=== PATIENT | female | born 1940 | race Caucasian/White ===

== ENCOUNTER 2017-02-25 06:34 | Day surgery (SDC) | payer MEDICARE, BC ==
[2017-02-25] MEDS ORDERED: Midazolam 1 MG/ML 2 ML SDV ONE (06:52)
[2017-02-25] MEDS ORDERED: fentaNYL 100 MCG/2 ML SDV ONE (06:52)
[2017-02-25] MEDS ORDERED: Propofol 200 MG/20 ML SDV ONE (06:52)
[2017-02-25] MEDS ORDERED: Sodium Chloride 0.9% 1,000 ML IV SCH (07:30)
[2017-02-25 10:16] VITALS: BP 156/79
--- NOTE | 2017-02-26 11:36 | OR ---
DATE OF PROCEDURE: 02/25/2017 PROCEDURE: Colonoscopy. FINDINGS: 1. Very mild inflammation of the rectum (biopsied using cold biopsy forceps). 2. No other abnormalities. No diverticulosis. No masses. No bleeding. PREOPERATIVE DIAGNOSIS: Rectal pain. POSTOPERATIVE DIAGNOSIS: Rectal pain. RISKS: Risks, benefits, alternatives, and limitations including, but not limited to, infection, bleeding, and perforation were explained to the patient and then wished to proceed. DESCRIPTION OF PROCEDURE: The patient was placed in the left lateral decubitus position. Digital rectal exam was performed without abnormality. The scope was introduced and advanced atraumatically to the ileocecal valve. The scope was brought back to the ascending, transverse, descending colon and retroflexed. No evidence of old or new blood. No diverticulosis. Very mild inflammation in the rectum, which was biopsied using cold biopsy forceps. No other abnormalities noted. The patient tolerated the procedure well. Petros García MD /[id number]
== END 2017-02-25 10:05 | disposition home or self-care (01) ==
LOC: JP.SDS 06:34
PROVIDERS: ATTEND Surgery
PROC: 0DBP8ZX Excision of Rectum, Via Natural or Artificial Opening Endoscopic, Diagnostic (ICD-10-PCS; principal; 2017-02-25)
DX: K62.89 Other specified diseases of anus and rectum (principal)
CPT/HCPCS: 45380; 88305; J2250; J2704; J3010; J7040

== ENCOUNTER 2017-07-15 09:31 | Emergency (ER) | payer MEDICARE, BC ==
--- NOTE | 2017-07-15 10:35 | EDM.PDOC ---
ED HPI GENERAL MEDICAL PROBLEM - General Chief Complaint: Cardiovascular Problem Stated Complaint: HEART PALPITATIONS Time Seen by Provider: 07/15/17 10:32 Source of Information: Reports: Patient History Limitations: Reports: No Limitations - History of Present Illness INITIAL COMMENTS - FREE TEXT/NARRATIVE: pt arrived with a history of palpitations. Thi lasted for bout 45 minutes. She did not have pain in her chest. She has not been ill with the flu. Onset: Other ( This has been going on for about 3 weeks on and off. ) Duration: Day(s): Location: Reports: Chest Quality: Reports: Other (pt did not have chest pain) Associated Symptoms: Reports: No Other Symptoms - Related Data Allergies Allergy/AdvReac Type Severity Reaction Status Date / Time atorvastatin [From Lipitor] Allergy Joint Pain Verified 02/25/17 07:02 cortisone Allergy Rash Verified 02/25/17 07:02 ezetimibe [From Zetia] Allergy Other Verified 02/25/17 07:02 Mvwmpmr-Msj-Ciw Reductase Allergy Joint Pain Verified 02/25/17 07:02 Inhibitor Sulfa (Sulfonamide Allergy Rash Verified 02/25/17 07:02 Antibiotics) Home Meds: Home Meds Aspirin [Halfprin] 81 mg PO DAILY 02/24/17 [History] Calcium Carbonate 600 mg PO BIDMEALS 02/24/17 [History] Fenofibrate Nanocrystallized [Triglide] 160 mg PO DAILY 02/24/17 [History] Levothyroxine [Sythroid] 100 mcg PO DAILY 02/24/17 [History] Metoprolol Succinate [Toprol Xl] 50 mg PO DAILY 02/24/17 [History] Nitroglycerin [Nitrostat] 0.4 mg SL ASDIRECTED 02/24/17 [History] [place]-3/DHA/Epa/Fish Oil [[place]-3 Fish Oil 1,000 MG Sfgl] 1,000 mg PO BID [History] PARoxetine [Paxil] 5 mg PO DAILY 02/24/17 [History] Ubidecarenone [Coenzyme Q10] 100 mg PO DAILY 02/24/17 [History] Omeprazole 20 mg PO DAILY 07/15/17 [History] Past Medical History Cardiovascular History: Reports: Angina, Arrhythmia, CAD, High Cholesterol, Hypertension Gastrointestinal History: Reports: GERD, Hemorrhoids Genitourinary History: Reports: Urinary Incontinence, UTI, Recurrent 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: Polycystic Ovaries, Musculoskeletal History: Reports: Arthritis Neurological History: Reports: Migraines Psychiatric History: Reports: Anxiety Endocrine/Metabolic History: Reports: Hypothyroidism - Past Surgical History HEENT Surgical History: Reports: Oral Surgery Cardiovascular Surgical History: Reports: Coronary Artery Bypass, Varicose, Other (See Below) Other Cardiovascular Surgeries/Procedures: vein stripping Respiratory Surgical History: Reports: Other (See Below) Other Respiratory Surgeries/Procedures: collapsed lung with chest tube placed GI Surgical History: Reports: Appendectomy, Cholecystectomy, Colonoscopy Female Surgical History: Reports: Breast Biopsy, Hysterectomy, Salpingo- Oophorectomy Musculoskeletal Surgical History: Reports: Other (See Below) Other Musculoskeletal Surgeries/Procedures:: right hand surgery Social & Family History - Tobacco Use Smoking Status *Q: Never Smoker Years of Tobacco use: 1 Used Tobacco, but Quit: Yes Month Tobacco Last Used: 0 - Caffeine Use Caffeine Use: Reports: Coffee - Recreational Drug Use Recreational Drug Use: No ED ROS GENERAL - Review of Systems Review Of Systems: See Below Constitutional: Reports: No Symptoms HEENT: Reports: No Symptoms Respiratory: Reports: Shortness of Breath Cardiovascular: Reports: Palpitations Endocrine: Reports: No Symptoms GI/Abdominal: Reports: No Symptoms : Reports: No Symptoms Musculoskeletal: Reports: No Symptoms Skin: Reports: No Symptoms Neurological: Reports: No Symptoms ED EXAM, GENERAL - Physical Exam Exam: See Below Free Text/Narrative:: pt arrived with a history of 3 weeks of palpitations This am she had 45 minutes where her heart was racing and she was having palpitations. Exam Limited By: No Limitations General Appearance: Alert, Anxious Ears: Normal TMs Nose: Normal Inspection Throat/Mouth: Normal Inspection Head: Atraumatic Neck: Normal Inspection Respiratory/Chest: No Respiratory Distress Cardiovascular: Regular Rate, Rhythm, Other (pt has not had any irregularities) GI/Abdominal: Soft, Non-Tender Rectal (Female) Exam: Normal Exam Back Exam: Normal Inspection Extremities: Normal Inspection Neurological: Alert, Oriented, Normal Cognition Psychiatric: Normal Affect Course - Vital Signs Last Recorded V/S: Last Vital Signs Temp 35.3 C 07/15/17 09:52 Pulse 57 L 07/15/17 11:42 Resp 13 07/15/17 11:42 BP 134/75 07/15/17 11:42 Pulse Ox 96 07/15/17 11:42 - Orders/Labs/Meds Orders: Active Orders 24 hr Category Date Time Status EKG Documentation Completion [RC] ASDIRECTED Care 07/15/17 10:32 Active EKG 12 Lead [EK] Routine Ther 07/15/17 10:32 Ordered Labs: Laboratory Tests 07/15/17 07/15/17 Range/Units 10:41 10:41 WBC 3.1 L (4.5-11.0) K/uL RBC 4.17 (3.30-5.50) M/uL Hgb 12.3 (12.0-15.0) g/dL Hct 37.6 (36.0-48.0) % MCV 90 (80-98) fL MCH 30 (27-31) pg MCHC 33 (32-36) % Plt Count 415 H (150-400) K/uL Neut % (Auto) 39 (36-66) % Lymph % (Auto) 44 (24-44) % [place] % (Auto) 16 H (2-6) % Eos % (Auto) 1 L (2-4) % Baso % (Auto) 0 (0-1) % Magnesium 1.5 L (1.8-2.4) mg/dL Troponin I < 0.017 (0.000-0.056) ng/mL - Re-Assessments/Exams Free Text/Narrative Re-Assessment/Exam: 07/15/17 12:00 pt had nornal chemitries at the clinic yesterday. Her ekg was normal. Her Tsh at the clinic was normal. her chest xray looked good. Her trop was normal. 07/15/17 12:01 A magnesium level was obtained which was 1.5. Departure - Departure Time of Disposition: 12:02 Disposition: Home, Self-Care 01 Condition: Fair Clinical Impression: Irregular heart beat, Hypomagnesemia Referrals: Luther Jack MD [Primary Care Provider] - Forms: ED Department Discharge Care Plan Goals: event recorder, magnesium oxide 400mg daily, keep upcoming appt with Dr Jack for her physical exam. - My Orders Last 24 Hours: My Active Orders 07/15/17 10:32 EKG Documentation Completion [RC] ASDIRECTED EKG 12 Lead [EK] Routine - Assessment/Plan Last 24 Hours: My Active Orders 07/15/17 10:32 EKG Documentation Completion [RC] ASDIRECTED EKG 12 Lead [EK] Routine
--- NOTE | 2017-07-15 11:45 | CR ---
Chest 2V HISTORY: Palpitations. COMPARISON: CT scan of the chest 10/17/2011. FINDINGS: Prior median sternotomy. The cardiac size is normal no acute infiltrates. No acute congesti ve change. Impression: 1. No acute pulmonary disease.
[2017-07-15 11:48] VITALS: BP 134/75
[2017-07-15] MEDS ORDERED: Magnesium Oxide 400 MG Tab PO ONE (11:55)
== END 2017-07-15 12:21 | disposition home or self-care (01) ==
LOC: JP.ED 09:31
DX: I49.9 Cardiac arrhythmia, unspecified (principal); E83.42 Hypomagnesemia; K21.9 Gastro-esophageal reflux disease without esophagitis; E78.00 Pure hypercholesterolemia, unspecified; E03.9 Hypothyroidism, unspecified; I10 Essential (primary) hypertension; Z87.440 Personal history of urinary (tract) infections; Z88.5 Allergy status to narcotic agent; Z88.2 Allergy status to sulfonamides; Z88.8 Allergy status to other drugs, medicaments and biological substances; Z79.82 Long term (current) use of aspirin
CPT/HCPCS: 36415; 71046; 83735; 84484; 85025; 93005; 99285; A9270; 93010; 99284

== ENCOUNTER 2018-07-26 11:47 | Emergency (ER) | payer MEDICARE ==
[2018-07-26 12:24] VITALS: BP 168/91
--- NOTE | 2018-07-26 12:48 | EDM.PDOC ---
ED HPI GENERAL MEDICAL PROBLEM - General Chief Complaint: Gastrointestinal Problem Stated Complaint: STINGING/BURNING IN CHEST Time Seen by Provider: 07/26/18 12:40 Source of Information: Reports: Patient, Old Records, RN History Limitations: Reports: No Limitations - History of Present Illness INITIAL COMMENTS - FREE TEXT/NARRATIVE: 78 yo female here with chest burning that began on Friday rather abruptly radiating to both shoulders. Described it as a burning. No associated sx's. Sx' s have persisted although less severe since then. She is on famotidine and omeprazole currently. Has a hx of 2 stents in her coronaries. Sx's not like anything she has experienced before. Has also had loose stools x 2 days, no associated blood in stool. No fever. Onset: Sudden Onset Date: 07/24/18 Duration: Day(s): (2), Constant, Improving Location: Reports: Chest, Abdomen (upper abdomen) Quality: Reports: Burning Severity: Moderate Improves with: Reports: Other (slightly better since Friday, not sure what made it less. ) Worsens with: Reports: None Context: Reports: Other (see HPI) Associated Symptoms: Reports: Chest Pain (burning). 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) (usual meds.) - Related Data Allergies Allergy/AdvReac Type Severity Reaction Status Date / Time atorvastatin [From Lipitor] Allergy Joint Pain Verified 07/26/18 12:15 cortisone Allergy Rash Verified 07/26/18 12:15 ezetimibe [From Zetia] Allergy Other Verified 07/26/18 12:15 Pcegxtk-Kmx-Xbl Reductase Allergy Joint Pain Verified 07/26/18 12:15 Inhibitor Sulfa (Sulfonamide Allergy Rash Verified 07/26/18 12:15 Antibiotics) Home Meds: Home Meds Aspirin [Halfprin] 81 mg PO DAILY 02/24/17 [History] Calcium Carbonate 600 mg PO BIDMEALS 02/24/17 [History] Fenofibrate Nanocrystallized [Triglide] 160 mg PO DAILY 02/24/17 [History] Levothyroxine [Sythroid] 100 mcg PO DAILY 02/24/17 [History] Metoprolol Succinate [Toprol Xl] 50 mg PO DAILY 02/24/17 [History] Nitroglycerin [Nitrostat] 0.4 mg SL ASDIRECTED 02/24/17 [History] [place]-3/DHA/Epa/Fish Oil [[place]-3 Fish Oil 1,000 MG Sfgl] 1,000 mg PO BID [History] PARoxetine [Paxil] 10 mg PO DAILY 02/24/17 [History] Ubidecarenone [Co Q-10] 100 mg PO DAILY 08/05/17 [History] hydroCHLOROthiazide [Hydrochlorothiazide] 25 mg PO DAILY 08/05/17 [History] Past Medical History Cardiovascular History: Reports: Angina, Arrhythmia, CAD, High Cholesterol, Hypertension Gastrointestinal History: Reports: GERD, Hemorrhoids Genitourinary History: Reports: Urinary Incontinence, UTI, Recurrent 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: Polycystic Ovaries, Musculoskeletal History: Reports: Arthritis Neurological History: Reports: Migraines Psychiatric History: Reports: Anxiety Endocrine/Metabolic History: Reports: Hypothyroidism - Past Surgical History HEENT Surgical History: Reports: Oral Surgery Cardiovascular Surgical History: Reports: Coronary Artery Bypass, Varicose, Other (See Below) Other Cardiovascular Surgeries/Procedures: vein stripping Respiratory Surgical History: Reports: Other (See Below) Other Respiratory Surgeries/Procedures: collapsed lung with chest tube placed GI Surgical History: Reports: Appendectomy, Cholecystectomy, Colonoscopy Female Surgical History: Reports: Breast Biopsy, Hysterectomy, Salpingo- Oophorectomy Musculoskeletal Surgical History: Reports: Other (See Below) Other Musculoskeletal Surgeries/Procedures:: right hand surgery Social & Family History - Tobacco Use Smoking Status *Q: Never Smoker Second Hand Smoke Exposure: No - Caffeine Use Caffeine Use: Reports: Coffee Other Caffeine Use: when feels good drinks 4 cpd - Recreational Drug Use Recreational Drug Use: No ED ROS GENERAL - Review of Systems Review Of Systems: See Below Constitutional: Denies: Fever, Diaphoresis HEENT: Reports: No Symptoms Respiratory: Reports: No Symptoms Cardiovascular: Reports: Chest Pain (burning). Denies: Dyspnea on Exertion, Palpitations, Syncope Endocrine: Reports: No Symptoms GI/Abdominal: Reports: Abdominal Pain (upper abdomen), Diarrhea, Decreased Appetite. Denies: Anorexia, Black Stool, Bloody Stool, Constipation, Distension , Hematemesis, Hematochezia, Melena, Nausea, Vomiting : Reports: No Symptoms Musculoskeletal: Reports: No Symptoms Skin: Reports: No Symptoms Neurological: Reports: No Symptoms Psychiatric: Reports: No Symptoms ED EXAM, GI/ABD - Physical Exam Exam: See Below Exam Limited By: No Limitations General Appearance: Alert, WD/WN, No Apparent Distress Eyes: Bilateral: Normal Appearance Ears: Normal External Exam, Normal Canal, Hearing Grossly Normal Nose: Normal Inspection, No Blood Throat/Mouth: Normal Inspection, Normal Lips, Normal Oropharynx, Normal Voice, No Airway Compromise Head: Atraumatic, Normocephalic Neck: Normal Inspection, Supple, Non-Tender Respiratory/Chest: No Respiratory Distress, Lungs Clear, Normal Breath Sounds, No Accessory Muscle Use Cardiovascular: Regular Rate, Rhythm, No Edema GI/Abdominal Exam: Normal Bowel Sounds, Soft, No Distention, Tender (epigastrium ). No: Non-Tender Back Exam: Normal Inspection. No: CVA Tenderness (R), CVA Tenderness (L) Extremities: Normal Inspection, Normal Range of Motion, Non-Tender, No Pedal Edema Neurological: Alert, Oriented, CN II-XII Intact, Normal Cognition, No Motor/ Sensory Deficits Psychiatric: Normal Affect, Normal Mood Skin Exam: Warm, Dry, Intact, Normal Color, No Rash Lymphatic: No Adenopathy EKG INTERPRETATION EKG Date: 07/26/18 Time: 12:15 Rhythm: NSR Rate (Beats/Min): 70 [place]: Normal P-Wave: Present QRS: Normal ST-T: Normal QT: Normal Comparison: No Change Course - Vital Signs Text/Narrative:: Good relief with GI cocktail Last Recorded V/S: Last Vital Signs Temp 35.9 C 07/26/18 12:22 Pulse 86 07/26/18 12:22 Resp 12 07/26/18 12:22 BP 168/91 H 07/26/18 12:22 Pulse Ox 96 07/26/18 12:22 - Orders/Labs/Meds Orders: Active Orders 24 hr Category Date Time Status Cardiac Monitoring [RC] .As Directed Care 07/26/18 11:49 Active EKG Documentation Completion [RC] ASDIRECTED Care 07/26/18 11:49 Active EKG 12 Lead [EK] Routine Ther 07/26/18 11:48 Ordered Labs: Laboratory Tests 07/26/18 07/26/18 Range/Units 12:54 13:06 WBC 4.8 (4.5-11.0) K/uL RBC 4.43 (3.30-5.50) M/uL Hgb 13.2 (12.0-15.0) g/dL Hct 39.3 (36.0-48.0) % MCV 89 (80-98) fL MCH 30 (27-31) pg MCHC 34 (32-36) % Plt Count 454 H (150-400) K/uL Sodium 129 L (140-148) mmol/L Potassium 3.4 L (3.6-5.2) mmol/L Chloride 93 L (100-108) mmol/L Carbon Dioxide 28 (21-32) mmol/L Anion Gap 11.4 (5.0-14.0) mmol/L BUN 12 (7-18) mg/dL Creatinine 0.8 (0.6-1.0) mg/dL Est Cr Clr Drug Dosing 58.18 mL/min Estimated GFR (MDRD) > 60 (>60) Glucose 104 (74-106) mg/dL Calcium 10.0 (8.5-10.1) mg/dL Troponin I < 0.017 (0.000-0.056) ng/mL Meds: Medications Discontinued Medications Generic Name Dose Route Start Last Admin Trade Name Freq PRN Reason Stop Dose Admin Al Hydroxide/Mg Hydroxide 15 0 ml 07/26/18 12:54 07/26/18 13:09 ml/ Lidocaine HCl 15 ml PO 07/26/18 12:55 15 ml ONETIME ONE Administration Diphenoxylate HCl/Atropine 1 tab 07/26/18 12:54 07/26/18 13:08 Lomotil 0.025-2.5 Mg PO 07/26/18 12:55 1 tab ONETIME ONE Administration Departure - Departure Time of Disposition: 13:40 Disposition: Home, Self-Care 01 Condition: Good Clinical Impression: Gastritis Qualifiers: Gastritis type: unspecified gastritis Chronicity: acute Gastritis bleeding: without bleeding Qualified Code(s): K29.00 - Acute gastritis without bleeding - Discharge Information *PRESCRIPTION DRUG MONITORING PROGRAM REVIEWED*: No *COPY OF PRESCRIPTION DRUG MONITORING REPORT IN PATIENT AGUSTIN: No Instructions: Gastritis, Adult, [id number] Referrals: Luther Jack MD [Primary Care Provider] - Forms: ED Department Discharge Additional Instructions: Continue current medications. Avoid: ibuprofen, aspirin, Aleve, carbonated beverages. Limit your caffeine. Bring stool that you have collected to your doctor for H. pylori testing. Take Gaviscon 30 ml after meals and at bedtime for heartburn. Take loperamide per package instructions for diarrhea control. Eat bananas as they are good for diarrhea and also to help raise your potassium level that is a little low. - My Orders Last 24 Hours: My Active Orders 07/26/18 11:48 EKG 12 Lead [EK] Routine 07/26/18 11:49 Cardiac Monitoring [RC] .As Directed EKG Documentation Completion [RC] ASDIRECTED - Assessment/Plan Last 24 Hours: My Active Orders 07/26/18 11:48 EKG 12 Lead [EK] Routine 07/26/18 11:49 Cardiac Monitoring [RC] .As Directed EKG Documentation Completion [RC] ASDIRECTED
[2018-07-26] MEDS ORDERED: Atropine/Diphenoxylate 0.025-2.5 MG Tab PO ONE (12:54)
[2018-07-26] MEDS ORDERED: Alum Hydrox/Mag Hydrox/Simeth 15 ML, Lidocaine 2% 15 ML PO ONE ×2 (12:54)
== END 2018-07-26 14:37 | disposition home or self-care (01) ==
LOC: JP.ED 11:47
DX: K29.00 Acute gastritis without bleeding (principal); I25.10 Atherosclerotic heart disease of native coronary artery without angina pectoris; E78.00 Pure hypercholesterolemia, unspecified; I10 Essential (primary) hypertension; K21.9 Gastro-esophageal reflux disease without esophagitis; E03.9 Hypothyroidism, unspecified; Z88.8 Allergy status to other drugs, medicaments and biological substances; Z79.82 Long term (current) use of aspirin; Z79.899 Other long term (current) drug therapy
CPT/HCPCS: 36415; 80048; 84484; 85027; 93005; 99285; A9270; 99283

== ENCOUNTER 2021-01-25 08:12 | Day surgery (SDC) | payer MEDICARE ==
[2021-01-25] MEDS ORDERED: Sodium Chloride 0.9% 10 ML Syringe FLUSH PRN (08:30)
[2021-01-25 09:28] VITALS: BP 153/78; PULSE 84
--- NOTE | 2021-01-25 14:01 | OR ---
DATE OF PROCEDURE: 01/25/2021 SURGEON: Karis Miller MD POSTOPERATIVE CARE: Postoperative care will be provided mainly at the [address] [place] [address] [facility] in conjunction with [facility]. PREOPERATIVE DIAGNOSIS: Cataract, right eye. POSTOPERATIVE DIAGNOSIS: Cataract, right eye. PROCEDURE: Phacoemulsification with intraocular lens placement, right eye. ANESTHESIA: Topical and intracameral. ESTIMATED BLOOD LOSS: Minimal. COMPLICATIONS: None. PATHOLOGY SPECIMENS: None. SURGICAL FINDINGS: None. INDICATION FOR PROCEDURE: The patient is a 80-year-old female with history of a visually significant cataract in the right eye, which interfered with activities of daily living. This consisted of a nuclear sclerosis cataract. Following careful discussion of the risks, benefits and alternatives to cataract extraction with intraocular lens placement including blindness and , the patient elected to proceed, and informed, written consent was obtained prior to the procedure. DESCRIPTION OF THE PROCEDURE: The patient was previously identified, and a eladio placed above the right eye. All sources, including the patient, indicated that the right eye was the correct eye. The patient was subsequently taken to the operating room where standard monitors were applied. The patient was then prepped and draped in the usual sterile fashion for ophthalmic surgery. Attention was first directed at the 12 o'clock position where a paracentesis port was fashioned. Shugar solution followed by Viscoat was instilled into the eye. Attention was then directed to the 8:30 position where a triplanar incision was made in a near-clear manner using a keratome. A continuous capsulorrhexis was then made using a combination of the cystotome and Utrata forceps. Hydrodissection was achieved using a balanced salt solution, and the lens rotated nicely. Phacoemulsification was then done using a modified [id number]-[id number] technique without complication. Phaco time was 5.91 CDE. The remaining cortex was removed using the irrigation/aspiration handpiece. Provisc was then instilled into the eye. A Technis lens, model DCB00, at 19.0 diopters was then placed in the capsular bag using an [place] injector. The remaining viscoelastic was removed using the irrigation/aspiration forceps. All wounds were then checked and found to be watertight. The lid speculum and drapes were removed. Maxitrol ointment was placed in the patient's right eye, and the eye was shielded. The patient tolerated the procedure well. The patient was instructed to follow up tomorrow. All needle and sponge counts were correct at the end of the procedure. Karis Miller MD /[id number]
== END 2021-01-25 09:25 | disposition home or self-care (01) ==
LOC: JP.SDS 08:12
PROVIDERS: ATTEND Ophthalmology
DX: H25.11 Age-related nuclear cataract, right eye (principal); I10 Essential (primary) hypertension; E78.5 Hyperlipidemia, unspecified; Z86.69 Personal history of other diseases of the nervous system and sense organs

== ENCOUNTER 2021-02-20 06:48 | Emergency (ER) | payer MEDICARE ==
[2021-02-20] MEDS ORDERED: Nitroglycerin 0.4 MG Tab.SL SL PRN (07:06)
[2021-02-20] MEDS ORDERED: Aspirin 81 MG Tab.Chew PO ONE (07:06)
[2021-02-20] MEDS ORDERED: Morphine 4 MG/ML Syringe IVPUSH PRN (07:06)
--- NOTE | 2021-02-20 07:09 | EDM.PDOC ---
ED HPI GENERAL MEDICAL PROBLEM - General Chief Complaint: Chest Pain Stated Complaint: SOB Time Seen by Provider: 02/20/21 06:56 Source of Information: Reports: Patient, Family, RN Notes Reviewed History Limitations: Reports: No Limitations - History of Present Illness INITIAL COMMENTS - FREE TEXT/NARRATIVE: 80-year-old female presents emergency department day complaint of chest pressure, she states is been ongoing for the last 5 days it does come and go she describes kind of classic anginal type symptoms with exertion she gets some chest pressure she stops rests it goes away. She is never taken any nitro for this pain. Her biggest complaint is shortness of breath with the chest pressure no nausea no diaphoresis. History of a CABG stress test 2018 unremarkable Chest Pain Score (Numeric/FACES): 1 - Related Data Allergies Allergy/AdvReac Type Severity Reaction Status Date / Time cortisone Allergy Rash Verified 02/20/21 06:57 ezetimibe [From Zetia] Allergy Other Verified 02/20/21 06:57 Sulfa (Sulfonamide Allergy Rash Verified 02/20/21 06:57 Antibiotics) amoxicillin [From Augmentin] AdvReac Diarrhea Verified 02/20/21 06:57 atorvastatin [From Lipitor] AdvReac Joint Pain Verified 02/20/21 06:57 clavulanic acid AdvReac Diarrhea Verified 02/20/21 06:57 [From Augmentin] [id number] Reductase AdvReac Joint Pain Verified 02/20/21 06:57 Inhibitor Home Meds: Home Meds Aspirin [Halfprin] 81 mg PO DAILY 02/24/17 [History] Calcium Carbonate 600 mg PO BIDMEALS 02/24/17 [History] Fenofibrate Nanocrystallized [Triglide] 160 mg PO DAILY 02/24/17 [History] Levothyroxine [Sythroid] 100 mcg PO DAILY 02/24/17 [History] Metoprolol Succinate [Toprol Xl] 50 mg PO DAILY 02/24/17 [History] Nitroglycerin [Nitrostat] 0.4 mg SL ASDIRECTED 02/24/17 [History] [place]-3/DHA/Epa/Fish Oil [[place]-3 Fish Oil 1,000 MG Sfgl] 1,000 mg PO BID 02/24/17 [History] PARoxetine [Paxil] 10 mg PO DAILY 02/24/17 [History] Ubidecarenone [Co Q-10] 100 mg PO DAILY 08/05/17 [History] Furosemide [Lasix] 20 mg PO DAILY 01/08/21 [History] Omeprazole Magnesium [Prilosec Otc] 40 mg PO DAILY 01/08/21 [History] amLODIPine [Norvasc] 2.5 mg PO DAILY 01/08/21 [History] fluorouraciL [Efudex 5% Cream] 1 applic TOP DAILY 01/08/21 [History] Magnesium Amino Acid Chelate [Magnesium] 125 mg PO DAILY 01/22/21 [History] Past Medical History HEENT History: Reports: Cataract, Impaired Vision, Sinusitis Cardiovascular History: Reports: Angina, Arrhythmia, CAD, High Cholesterol, Hypertension Gastrointestinal History: Reports: Cholelithiasis, GERD, Hemorrhoids Genitourinary History: Reports: Urinary Incontinence, UTI, Recurrent [employer] History: Reports: Polycystic Ovaries, Musculoskeletal History: Reports: Arthritis Neurological History: Reports: Migraines Psychiatric History: Reports: Anxiety Endocrine/Metabolic History: Reports: Hypothyroidism Oncologic (Cancer) History: Reports: Other (See Below) Other Oncologic History: skin - Infectious Disease History Infectious Disease History: Reports: Chicken Pox, Measles - Past Surgical History HEENT Surgical History: Reports: Oral Surgery Cardiovascular Surgical History: Reports: Coronary Artery Bypass, Varicose, Other (See Below) Other Cardiovascular Surgeries/Procedures: vein stripping Respiratory Surgical History: Reports: Other (See Below) Other Respiratory Surgeries/Procedures: collapsed lung with chest tube placed GI Surgical History: Reports: Appendectomy, Cholecystectomy, Colonoscopy Female Surgical History: Reports: Breast Biopsy, Hysterectomy, Salpingo-Oophorectomy Endocrine Surgical History: Reports: None Musculoskeletal Surgical History: Reports: Other (See Below) Other Musculoskeletal Surgeries/Procedures:: right hand surgery Oncologic Surgical History: Reports: Other (See Below) Other Oncologic Surgeries/Procedures: skin bx Social & Family History - Tobacco Use Tobacco Use Status *Q: Never Tobacco User Second Hand Smoke Exposure: No - Caffeine Use Caffeine Use: Reports: Coffee Other Caffeine Use: when feels good drinks 4 cpd - Recreational Drug Use Recreational Drug Use: No ED ROS GENERAL - Review of Systems Review Of Systems: See Below Constitutional: Reports: No Symptoms HEENT: Reports: No Symptoms Respiratory: Reports: Shortness of Breath Cardiovascular: Reports: Chest Pain, Dyspnea on Exertion GI/Abdominal: Reports: No Symptoms ED EXAM, GENERAL - Physical Exam Exam: See Below Exam Limited By: No Limitations General Appearance: Alert, WD/WN, No Apparent Distress Respiratory/Chest: No Respiratory Distress, Lungs Clear, Normal Breath Sounds, No Accessory Muscle Use, Chest Non-Tender Cardiovascular: Regular Rate, Rhythm, No Murmur GI/Abdominal: Soft, Non-Tender #1 Interpretation EKG Date: 02/20/21 Time: 07:09 Rhythm: NSR [place]: Normal P-Wave: Present QRS: Normal ST-T: Normal QT: Normal Comparison: NA - No Prior EKG Course - Vital Signs Last Recorded V/S: Last Vital Signs Temp 97.4 F 02/20/21 07:06 Pulse 68 02/20/21 07:06 Resp 13 02/20/21 07:42 BP 150/86 H 02/20/21 07:42 Pulse Ox 93 L 02/20/21 07:42 - Orders/Labs/Meds Orders: Active Orders 24 hr Category Date Time Status Cardiac Monitoring [RC] .As Directed Care 02/20/21 07:06 Active Chest 1V Frontal [CR] Stat Exams 02/20/21 07:07 Taken Morphine Med 02/20/21 07:06 Active 4 mg IVPUSH Q10M PRN Nitroglycerin [Nitrostat] Med 02/20/21 07:06 Active 0.4 mg SL Q5M PRN EKG 12 Lead [EK] Stat Ther 02/20/21 07:07 Ordered Medication Orders Morphine Sulfate (Morphine 4 Mg/Ml Syringe) 4 mg IVPUSH Q10M PRN PRN Reason: Chest Pain Stop: 02/21/21 07:06 Nitroglycerin (Nitroglycerin 0.4 Mg Tab.Sl) 0.4 mg SL Q5M PRN PRN Reason: Chest Pain Stop: 02/21/21 07:06 Last Admin: 02/20/21 07:18 Dose: 0.4 mg Documented by: [facility] Labs: Laboratory Tests 02/20/21 02/20/21 Range/Units 07:15 07:15 WBC 4.1 L (4.5-11.0) K/uL RBC 4.49 (3.30-5.50) M/uL Hgb 13.9 (12.0-15.0) g/dL Hct 40.1 (36.0-48.0) % MCV 89 (80-98) fL MCH 31 (27-31) pg MCHC 35 (32-36) % Plt Count 376 (150-400) K/uL Neut % (Auto) 34.6 L (36-66) % Lymph % (Auto) 47.7 H (24-44) % [place] % (Auto) 16.5 H (2-6) % Eos % (Auto) 0.7 L (2-4) % Baso % (Auto) 0.5 (0-1) % Sodium 136 L (140-148) mmol/L Potassium 3.8 (3.6-5.2) mmol/L Chloride 99 L (100-108) mmol/L Carbon Dioxide 26 (21-32) mmol/L Anion Gap 14.8 H (5.0-14.0) mmol/L BUN 17 (7-18) mg/dL Creatinine 0.8 (0.6-1.0) mg/dL Est Cr Clr Drug Dosing 56.36 mL/min Estimated GFR (MDRD) > 60 (>60) Glucose 92 (74-106) mg/dL Calcium 9.6 (8.5-10.1) mg/dL Total Bilirubin 0.4 (0.2-1.0) mg/dL AST 29 (15-37) U/L ALT 30 (12-78) U/L Alkaline Phosphatase 57 (46-116) U/L Troponin I < 0.017 (0.000-0.056) ng/mL Total Protein 6.8 (6.4-8.2) g/dL Albumin 3.6 (3.4-5.0) g/dL Globulin 3.2 (2.3-3.5) g/dL Albumin/Globulin Ratio 1.1 L (1.2-2.2) Meds: Medications Generic Name Dose Route Start Last Admin Trade Name Freq PRN Reason Stop Dose Admin Morphine Sulfate 4 mg 02/20/21 07:06 Morphine 4 Mg/Ml Syringe IVPUSH 02/21/21 07:06 Q10M PRN Chest Pain Nitroglycerin 0.4 mg 02/20/21 07:06 02/20/21 07:18 Nitroglycerin 0.4 Mg Tab.Sl SL 02/21/21 07:06 0.4 mg Q5M PRN Administration Chest Pain Discontinued Medications Generic Name Dose Route Start Last Admin Trade Name Freq PRN Reason Stop Dose Admin Aspirin 324 mg 02/20/21 07:06 02/20/21 07:18 Aspirin 81 Mg Tab.Chew PO 02/20/21 07:07 324 mg ONETIME ONE Administration Departure - Departure Time of Disposition: 08:43 Disposition: Home, Self-Care 01 Condition: Fair Clinical Impression: ACS (acute coronary syndrome) Instructions: Acute Coronary Syndrome Referrals: PCP,None [Primary Care Provider] - Forms: ED Department Discharge Additional Instructions: Use your nitro if needed with chest pain, try and limit your exertion that causes chest pain, please report for your stress test on Dr. Ramos will contact you with the results. Sepsis Event Note (ED) - Focused Exam Vital Signs: Vital Signs Temp Pulse Resp BP BP Pulse Ox 02/20/21 07:42 13 150/86 H 93 L 02/20/21 07:27 19 137/91 H 96 02/20/21 07:18 153/85 H 02/20/21 07:16 17 153/85 H 97 02/20/21 07:06 97.4 F 68 16 165/86 H 99 - My Orders Last 24 Hours: My Active Orders 02/20/21 07:06 Cardiac Monitoring [RC] .As Directed Morphine 4 mg IVPUSH Q10M PRN Nitroglycerin [Nitrostat] 0.4 mg SL Q5M PRN 02/20/21 07:07 Chest 1V Frontal [CR] Stat EKG 12 Lead [EK] Stat - Assessment/Plan Last 24 Hours: My Active Orders 02/20/21 07:06 Cardiac Monitoring [RC] .As Directed Morphine 4 mg IVPUSH Q10M PRN Nitroglycerin [Nitrostat] 0.4 mg SL Q5M PRN 02/20/21 07:07 Chest 1V Frontal [CR] Stat EKG 12 Lead [EK] Stat Plan: Assessment Acuity = acute Site and laterality = acute coronary syndrome unstable Etiology = underlying coronary artery disease Manifestations = atypical angina Location of injury = Home Lab values = CBC, CMP unremarkable troponin was negative EKG same as prior chest x-ray I did review films myself I cannot appreciate any acute process, the official read from radiology is pending Plan Because of constraints of the pandemic and there are no beds available at any of the transfer facilities elected to set her up for stress test this week will be done in [address] Ramos he will be reading the test. She also has an appointment with her electric utility lineworker Dr. Nathan on the of this month This note was dictated using [employer] voice recognition software please call with any questions on syntax or grammar.
[2021-02-20 09:03] VITALS: BP 134/77; PULSE 65
--- NOTE | 2021-02-20 09:30 | CR ---
CHEST: Frontal 02/20/2021 at 7:33 AM CLINICAL HISTORY:Chest pain COMPARISON:07/15/2017 FINDINGS: Lungs are mildly hyperaerated. The heart size, pulmonary vascularity and hilar structures are normal. No infiltrate effusion or pneumothorax is seen. There has been previous coronary artery bypass IMPRESSION: No acute cardiopulmonary process.
== END 2021-02-20 09:39 | disposition home or self-care (01) ==
LOC: JP.ED 06:48
DX: I24.9 Acute ischemic heart disease, unspecified (principal); I25.10 Atherosclerotic heart disease of native coronary artery without angina pectoris; E78.00 Pure hypercholesterolemia, unspecified; I10 Essential (primary) hypertension; K21.9 Gastro-esophageal reflux disease without esophagitis; E03.9 Hypothyroidism, unspecified; Z88.0 Allergy status to penicillin; Z88.2 Allergy status to sulfonamides; Z88.8 Allergy status to other drugs, medicaments and biological substances; Z79.82 Long term (current) use of aspirin; Z79.899 Other long term (current) drug therapy
CPT/HCPCS: 36415; 71045; 80053; 84484; 85025; 93005; 99285; A9270

== ENCOUNTER 2022-07-11 06:18 | Day surgery (SDC) | payer MEDICARE ==
[2022-07-11] MEDS ORDERED: Sodium Chloride 0.9% 10 ML Syringe FLUSH PRN (07:00)
[2022-07-11 07:43] VITALS: BP 159/82; PULSE 58
== END 2022-07-11 07:48 | disposition home or self-care (01) ==
LOC: JP.SDS 06:18
PROVIDERS: ATTEND Ophthalmology
DX: H26.9 Unspecified cataract (principal); E78.5 Hyperlipidemia, unspecified; I25.10 Atherosclerotic heart disease of native coronary artery without angina pectoris; E03.9 Hypothyroidism, unspecified; I10 Essential (primary) hypertension; Z88.2 Allergy status to sulfonamides; Z88.1 Allergy status to other antibiotic agents; Z88.0 Allergy status to penicillin; Z88.8 Allergy status to other drugs, medicaments and biological substances; Z79.899 Other long term (current) drug therapy
CPT/HCPCS: J3490; V2632

== ENCOUNTER 2023-05-11 20:20 | Emergency (ER) | payer MEDICARE ==
[2023-05-11 21:23] LABS: APPEARANCE,URINE CLEAR (CLEAR); BILIRUBIN,URINE NEGATIVE (NEGATIVE); COLOR,URINE YELLOW (YELLOW); GLUCOSE,URINE NEGATIVE (NEGATIVE); KETONES,URINE NEGATIVE (NEGATIVE); LEUKOCYTE ESTERASE,URINE TRACE (NEGATIVE); NITRITE,URINE NEGATIVE (NEGATIVE); OCCULT BLOOD,URINE TRACE-INTACT (NEGATIVE); PROTEIN,URINE 30 mg/dL (NEGATIVE); UROBILINOGEN,URINE 0.2 EU/dL (0.2-1.0)
[2023-05-11 21:35] LABS: EPITHELIAL CELLS,URINE RARE; WBC,URINE 20-30 (0-5)
[2023-05-11 21:36] LABS: AMORPHOUS SEDIMENT,URINE NOT SEEN; BACTERIA,URINE RARE; MUCUS,URINE RARE
[2023-05-11 21:39] VITALS: BP 159/78; PULSE 57
[2023-05-11] MEDS ORDERED: Sodium Phosphate,Monobasic/Sodium Phosphate,Dibasic Enema 133 ML Bottle RECTAL ONE (21:56)
[2023-05-11] MEDS ORDERED: Bisacodyl 10 MG Supp RECTAL ONE (22:40)
[2023-05-11] MEDS ORDERED: Mineral Oil 133 ML BOTTLE RECTAL ONE (23:29)
== END 2023-05-12 00:44 | disposition home or self-care (01) ==
LOC: JP.ED 20:20
DX: K59.04 Chronic idiopathic constipation (principal); N39.0 Urinary tract infection, site not specified; R31.9 Hematuria, unspecified; I25.10 Atherosclerotic heart disease of native coronary artery without angina pectoris; I10 Essential (primary) hypertension; K21.9 Gastro-esophageal reflux disease without esophagitis; E03.9 Hypothyroidism, unspecified; M19.90 Unspecified osteoarthritis, unspecified site; Z79.82 Long term (current) use of aspirin; Z79.02 Long term (current) use of antithrombotics/antiplatelets; Z79.899 Other long term (current) drug therapy; Z88.2 Allergy status to sulfonamides; Z88.1 Allergy status to other antibiotic agents; Z88.8 Allergy status to other drugs, medicaments and biological substances
CPT/HCPCS: 74018; 74018-26; 81001; 87086; 99283; 99284; A9270-GY